=== PATIENT | female | born 1975 | race Caucasian/White ===

== ENCOUNTER 2017-02-28 09:44 | Emergency (ER) | payer MEDICAID ==
[~2017-02-28] VITALS: Ht 149.9 cm; Wt 63.0 kg
[2017-02-28] MEDS ORDERED: SODIUM CHLORIDE 0.9% 1,000 ML IV ONE (10:13)
[2017-02-28] MEDS ORDERED: LORazepam 2MG/ML-1ML VIAL IV ONE (10:15)
[2017-02-28 10:35] LABS: Basophils # (auto) 0 uL; Basophils % (auto) 0.3 % (0.0-2.0); Eosinophils # (auto) 0.1 uL; Eosinophils % (auto) 1.3 % (0.0-7.0); Lymphocytes % (auto) 14.3 % (10.0-50.0); Mean Corpuscular Hemoglobin 32.7 pg (28.0-32.0); Mean Corpuscular Hgb Conc. 34.1 g/dL (32.0-36.0); Monocytes # (auto) 0.3 uL; Monocytes % (auto) 4.7 % (0.0-12.0); Neutrophils # (auto) 5.4 uL; Neutrophils % (auto) 79.4 % (37.0-80.0); Platelet Count (auto) 231 10^3/uL (140-450); Red Cell Distribution Width 12.6 % (11.8-14.3); White Blood Cell 6.8 10^3/uL (4.4-10.8)
[2017-02-28 12:43] LABS: Chloride 108 mmol/L (98-107); Potassium 4.2 mmol/L (3.5-5.1); Sodium 142 mmol/L (136-145)
[2017-02-28 12:44] LABS: Alanine Aminotransferase 29 U/L (13-56); Albumin 3.7 g/dL (3.4-5.0); Alkaline Phosphatase 75 U/L (45-117); Anion Gap 9 (5-15); Aspartate Aminotransferase 10 U/L (15-37); BUN/Creatinine Ratio 10.4; Bilirubin, Total 0.3 mg/dL (0.2-1.0); Blood Urea Nitrogen 10 mg/dL (7-18); Calcium 8.4 mg/dL (8.5-10.1); Carbon Dioxide 25 mmol/L (21-32); GFR African American 83 mL/min; GFR Non-African American 69 mL/min; Glucose 83 mg/dL (74-106); Total Protein 7.7 g/dL (6.4-8.2)
[2017-02-28 15:00] VITALS: BP 128/74
== END 2017-02-28 16:04 | disposition home or self-care (01) ==
LOC: ER 09:44
DX: R56.9 Unspecified convulsions (principal); G89.29 Other chronic pain; M54.5 Low back pain; E78.5 Hyperlipidemia, unspecified; R41.82 Altered mental status, unspecified
CPT/HCPCS: 36415; 70450; 80053; 80320; 84484; 85025; 96361; 96374; 99285; J2060; J7030

== ENCOUNTER 2018-02-05 11:43 | Emergency (ER) | payer MEDICAID ==
[~2018-02-05] VITALS: Ht 165.1 cm; Wt 72.6 kg
[2018-02-05 13:02] LABS: Basophils # (auto) 0 uL; Basophils % (auto) 0.3 % (0.0-2.0); Eosinophils # (auto) 0.1 uL; Eosinophils % (auto) 0.8 % (0.0-7.0); Hematocrit 45.7 % (36.0-46.0); Hemoglobin 15.7 g/dL (12.2-16.2); Lymphocytes # (auto) 0.8 uL; Lymphocytes % (auto) 11.1 % (10.0-50.0); Mean Corpuscular Hemoglobin 32.9 pg (28.0-32.0); Mean Corpuscular Hgb Conc. 34.3 g/dL (32.0-36.0); Mean Corpuscular Volume 95.9 fL (80.0-100.0); Monocytes # (auto) 0.3 uL; Neutrophils % (auto) 83.8 % (37.0-80.0); Nucleated Red Blood Cells % 0.1 %; Platelet Count (auto) 231 10^3/uL (140-450); Red Blood Cells 4.77 10^6/uL (4.0-5.20); Red Cell Distribution Width 12.5 % (11.8-14.3); White Blood Cell 7.2 10^3/uL (4.4-10.8)
[2018-02-05 13:27] LABS: Albumin 3.3 g/dL (3.4-5.0); Calcium 7.6 mg/dL (8.5-10.1); Potassium 4.2 mmol/L (3.5-5.1)
[2018-02-05 13:32] LABS: BUN/Creatinine Ratio 15.9; Bilirubin, Total 0.2 mg/dL (0.2-1.0); Total Protein 7.1 g/dL (6.4-8.2)
[2018-02-05] MEDS ORDERED: PHENYTOIN IV DILANTIN 500 MG in SODIUM CHL 0.9% 100 ML IV ONE (14:00)
[2018-02-05 16:11] VITALS: BP 127/83
== END 2018-02-05 16:16 | disposition home or self-care (01) ==
LOC: EDBD 11:43 → ER 11:43
DX: R56.9 Unspecified convulsions (principal); I10 Essential (primary) hypertension; E78.5 Hyperlipidemia, unspecified; Z86.73 Personal history of transient ischemic attack (TIA), and cerebral infarction without residual deficits
CPT/HCPCS: 36415; 80053; 80185; 82962; 83735; 85025; 94761; 96365; 99283; J1165